=== PATIENT | male | born 1955 | race Caucasian/White ===

== ENCOUNTER 2024-07-28 06:36 | Observation (INO) ==
--- NOTE | 2024-06-29 09:19 | PAT Medication Instructions ---
Medication Instructions Date of Service June 29, 2024 Home Medications donepezil 5 mg tablet (Aricept) 5 mg PO HS Take evening before surgery donepezil 5 mg tablet (Aricept) 5 mg PO HS OTHERWISE NOTHING TO EAT OR DRINK AFTER MIDNIGHT Other Notes If you have any questions please call us at [phone] or [phone] or [phone] or [phone]
--- NOTE | 2024-06-29 09:34 | Anesthesiology Consultation ---
Date of Service June 29, 2024 Assessment & Plan (1) Encounter for pre-operative examination: Chart Review Chart Review: Acceptable Risk for Surgery and Patient seen in Pre Admission Testing Pt currently scheduled as 23 hours observation. If surgeon decides to change patient to Same Day Joint, patient would be acceptable risk for TKA, pending patient is motivated, has good support and surgeon's office completes [facility] Program preop requirements. Per PAT appt on 06/29/24, patient with nasal congestion, rhinitis, productive cough (started 06/27/24). No recent illness/disease exposures (does work in sales though) or recent illness/disease positive tests. Will leave to surgeon's discretion if preop Covid testing needed. Patient educated that symptoms will need resolved by DOS- patient voices understanding. Teaching & Discussion Pre-Anesthesia Teaching/Discussion Notes: Instructed NPO after midnight before surgery,except medications with 15 cc of water. Medication instructions provided according to the PAT guidelines. History Surgery Operation Date: 07/28/24 08:50 Proposed Procedures p Left Total Knee Arthroplasty - Jony Hardy MD Height/Weight Height: 5 ft 11.5 in Weight: 80.2 kg Allergies Allergy/AdvReac Type Severity Reaction Status Date / Time No Known Allergies Allergy Verified 06/29/24 08:55 Medications Home Medications Medication Instructions Recorded Confirmed Last Taken donepezil 5 mg tablet (Aricept) 5 mg PO HS 06/29/24 06/29/24 Unknown Past Medical History Medical History (Updated 06/29/24 @ 09:57 by Nina Ho PA-C) Leg length discrepancy Memory changes Mild per patient Varicose vein of leg right Exercise / Class Metabolic Activity II 4-5 Yardwork/Stairs/Walk up hill (one flight of stairs - no chest pain or SOB ) Past Family History Family History Other No family history of adverse response to anesthesia Past Surgical History Surgical History Hx of arthroscopic knee surgery left knee; meniscus repair Hx of colonoscopy Past Anesthesia History No Hx of Anesthesia Complications and No Family Hx of Anesthesia Complications History of PONV No Hx of PONV and No Hx of Motion Sickness Social History Smoking Status: Never smoker Do You Dip or Chew Tobacco: No Hx Alcohol Use: Yes Alcohol type: beer alcohol intake frequency: a few times a week Hx Substance Use: No substance use type: does not use Review of Systems - Snoring - no witnessed apnea- no hx of sleep study Patient denies chest pain, shortness of breath, dyspnea on exertion, reflux, cough, wheezing, palpitations. No hx of seizures, stroke, [place]. No hx of blood clots or blood transfusions Physical Exam Vital Signs VITALS BP 106/70 P 71 TEMP 98.1 SP02 95% RESP 16 Constitutional no acute distress ENMT Mouth: no TMJ clicking Thyromental Distance: > or= 3.5 Finger Breadths (3.5) Mallampati Class: II Neck + facial hair (mustache- did advise to keep trimmed for DOS ); neck extension not limited Respiratory normal respiratory effort; no respiratory distress Auscultation: lungs clear to auscultation bilaterally; no wheezes Cardiovascular Rate/Rhythm: regular rate and regular rhythm Heart Sounds: no murmur Vessels: no carotid bruit Musculoskeletal Spine: no pain with cervical ROM Extremities: extremities normal to inspection Psychiatric Orientation: alert Lab Results Anesthesia Preop Results Results Anesthesia Widget: WBC 6.19 K/ul (4.8-10.8) 06/29/24 Hgb 14.6 g/dl (14.0-18.0) 06/29/24 Hct 43.1 % (42.0-52.0) 06/29/24 Plt 230 K/uL (130-400) 06/29/24 Na 138 mmol/L (136-145) 06/29/24 K 4.0 mmol/L (3.5-5.1) 06/29/24 Cl 100 mmol/L (98-107) 06/29/24 CO2 33 mmol/L (21-32) H 06/29/24 BUN 18 mg/dl (6-23) 06/29/24 Creat 1.28 mg/dl (0.6-1.4) 06/29/24 Glucose Level 99 mg/dl (70-99(Fasting)) 06/29/24 PT 10.6 Seconds (9.0-12.0) 06/29/24 PTT 29 Seconds (21-31) 06/29/24 INR 1.0 (0.9-1.1) 06/29/24 Blood Type A Positive 06/29/24 Antibody Screen NEGATIVE 06/29/24 Testing Electrocardiogram Date: 06/29/24 Findings: + NSR @ (67bpm) Left axis deviation Septal infarct, age undetermined (Discussed with Dr. Cornejo- no significant cardiac history, good functional status- patient can proceed as scheduled) Chest X-Ray Date: 06/29/24 Findings: + NAD
--- NOTE | 2024-07-23 18:07 | History & Physical Report ---
Date of Service July 23, 2024 Assessment & Plan (1) Left knee DJD: 68-year-old very active gentleman with advanced left knee DJD with probably some degree of ACL insufficiency status post an open meniscectomy many years ago. Failed conservative care. He like to have his knee fixed theraplay so he can stay active. Plan: We are going to take him to the operating room and do a left knee replacement. The risks and benefits of this procedure explained to the patient. He understands. Informed consent was obtained. Hopefully will get a little bit better knee motion. Main reason to the surgery is for pain. Will likely put some antibiotics in the cement due to history of open surgery in the past. He is planning on using tramadol for pain control along with Toradol. He is dre stay in the hospital overnight. Hopefully discharge postop day 1. We use aspirin for DVT prophylaxis. History of Present Illness Chief Complaint: . Persistent left knee pain discomfort and stiffness. Primary Care Provider: Nicholas Kang MD . Patient is a 68-year-old very active gentleman from [place] who presents for surgical treatment of his left knee. He has a long history of knee problems dating back to his college years. He had an open meniscectomy done by Dr. Ochoa when he was in college. He has had persistent pain and discomfort since then. He is just been putting up with it. He has had some intermittent injections which have become less successful over time. He is very active hiking and doing other activities and have more difficulty doing this. His knee feels loose and unstable. The gives out on him. Bit hurts. He would like to have it fixed. Allergies Allergy/AdvReac Type Severity Reaction Status Date / Time No Known Allergies Allergy Verified 06/29/24 08:55 Home Medications Medication Instructions Recorded Confirmed Type donepezil 5 mg tablet (Aricept) 5 mg PO HS 06/29/24 06/29/24 History Past Med/Surg History Problem List Encounter for pre-operative examination Left knee DJD Medical History Leg length discrepancy Memory changes Mild per patient Varicose vein of leg right Surgical History Hx of colonoscopy Hx of arthroscopic knee surgery left knee; meniscus repair Family History Other No family history of adverse response to anesthesia Social History Smoking Status: Never smoker Second Hand Exposure: No; Do You Dip or Chew Tobacco: No; Tobacco Cessation Education Requested by Patient: No Hx Alcohol Use: Yes Alcohol type: beer Hx Substance Use: No Preferred Language: [place] Communication Ability: Effective Portable Sawyer Required: No Beliefs That Will Affect Care: None Current Living Situation: Spouse Other Information That Helps Us Care for You: No Feels Safe at Home: Yes Safety Concerns: Feels Safe At This Time Assistive Devices: Glasses Review of Systems All systems reviewed & are unremarkable except as noted in HPI & below. Physical Exam . Physical examination was a pleasant middle-age male. Looks be in excellent health. Examination of the left knee reveal patient ambulates with a bit of an antalgic gait. Got varus alignment to his knee with a bit of a varus thrust with weightbearing. He is got an oblique incision around the medial side of his knee. Small knee effusion. Got quite a bit of bony hypertrophy. Pretty stiff knee with about a 10 degree flexion contracture and only bends about 100 degrees. No particular pain with hip motion. Little bit of stiffness with hip motion. Negative straight leg raise. He is neurologically intact. Constitutional WD/WN, vitals as above Respiratory normal respiratory effort, lungs clear to auscultation Cardiovascular RRR, no murmur, no edema Gastrointestinal (Abdomen) normal bowel sounds, soft, nontender, no hepatosplenomegaly Results & Data Results & Data Laboratory Results . Diagnostic Findings . X-ray of the left knee reviewed. Shows advanced left knee tricompartment DJD. He is got complete loss of his medial joint space. Got subluxation of the femur on the tibia. Is got subchondral sclerosis. Significant osteophytes throughout and the large posterior loose bodies. PG Care Time/CCT Total # of Minutes Spent Total Time Spent with Patient: Total time spent is greater than 50% in coordination of care (as documented) at patient's floor/unit and/or counseling patient: Coding Level of Care Code None Diagnoses Left knee DJD M17.12
[~2024-07-28 06:36] MED LIST: BUPIVACAINE 0.5 % 5 MG/1 ML PF 10ML VIAL ONE; ROPIVACAINE 0.5% 5 MG/ML 30 ML VIAL ONE
--- NOTE | 2024-07-28 06:42 | History & Physical Bridge Note ---
Date of Service July 28, 2024 History & Physical Bridge Note I have examined the patient, reviewed the History & Physical and in the interval since the performance of the History & Physical I have noted the following changes of clinical significance: no changes noted
[2024-07-28] MEDS: METOCLOPRAMIDE HCL 10 MG TABLET PO SCH (07:05)
[2024-07-28] MEDS: FAMOTIDINE 20 MG TAB PO SCH (07:05)
[2024-07-28] MEDS: CeleBREX 200 MG CAP PO SCH (07:05)
[2024-07-28] MEDS: ACETAMINOPHEN 500 MG TAB PO SCH ×2 (07:05→14:11)
[2024-07-28] MEDS: LR 60ML/HR IV SCH (07:05)
--- OUTSIDE RECORDS SUMMARY | 2024-07-28 07:05 | External Medical Summary | Summary of Care ---
Author Name Unknown Organization [facility] Address [address] [place] [address] Phone [phone] Care Team Providers Care Airfield Services Officer Name Role Phone Zabrina Kirk MD Primary Care Provider [phone] Reason for Referral * Evaluate & Treat - Unlimited Visits (Within 10 days (routine)) - Pending Review Specialty Diagnoses / Procedures Referred By Contac t Referred To Contact Urology Diagnoses Elevated prostate specific antigen (PSA) Zabrina Kirk MD [address] [place] [address] [address] Phone: tel: fax: Referral ID Status Reason Start Date Expiration Date Visits Requested Visits Authorized [id number] Pending Review Specialty Services Required 06/27/[phone] Question Answer Referral Priority Within 10 days (routine) Where should this appointment be scheduled? [facility] What is the patient being referred for? Elevated PSA Reason for Visit * Reason Onset Date Comments Referral 06/27/2024 Urology Abnormal Test Results 06/27/2024 Encounter Details Date Type Department Care Team (Late st Contact Info) Description 06/27/2024 Telephone Family Practice State Dorian Singh [address] [place] [address] [address] [id number] Zabrina Kirk MD [address] [place] [address] [id number] Referral (Urology); Abnormal Test Results Allergies No known active allergiesdocumented as of this encounter (statuses as of 06/27/2024) Medications Donepezil HCl 5 MG Oral Tablet (Aricept) Take 1 Tablet by mouth in the morning. Take with largest meal of the day.. 30 Tablet 5 Active Additional Information Patient taking differently:5 mg OralDINNER, Take with largest meal of the day., Reported on 04/11/2024 documented as of this encounter (statuses as of 06/27/2024) Active Problems Problem Noted Date Diagnosed Date Unspecified dementia, unspec ified severity, without behavioral disturbance, psychotic disturbance, mood disturbance, and anxiety 04/11/2024 Stage 3a chronic kidney disease (CKD) 03/11/2021 Overview: Per CKD protocol Prediabetes 07/14/2017 Overview: Per Prediabetes protocol #1 Osteoarthrosis 04/16/2015 documented as of this encounter (statuses as of 06/27/2024) Resolved Problems Problem Noted Date Diagnosed Date Resolved Date Osteoarthrosis, localized, p rimary, involving lower leg 05/05/2012 04/16/2015 Overview (03/04/2021): ICD-10 update of inactive term ICD-10 update of inactive term documented as of this encounter (statuses as of 06/27/2024) Immunizations Name Administration Dates Next Due COVID-19 mRNA, LNP-s, No Pre serve, 2-Dose Series (Moderna) 09/07/2020,08/10/2020 COVID-19, MRNA-LNP, PF, 50 M CG/0.5 mL, 12 YRS AND ABOVE, IM (MODERNA-Spikevax) 05/21/2023 COVID-19, mRNA, LNP-s, PF, B ooster, 100mcg/0.5mg (Moderna) 04/01/2021 Pneumococcal Conjugate Vaccine, 20-valent (Prevn ar20) 04/09/2023 RSV Vac., Recomb, Adjuvant, PF,0.5 Ml (Arexvy) 0 06/04/2023 Seasonal Influenza Vac., MDV, IM, 0.5 mL (Fluzon e) 04/11/2014 Seasonal Influenza, High Dos e, Trivalent, PF, IM (Fluzone HD) 04/11/2024,03/25/2022 Seasonal Influenza, PF, 6 M & above, IM , (FluLaval or Fluzone) 02/21/2021,02/20/2020 Seasonal Influenza, Quadrivalent Hd (Fluzone Hd) 04/09/2023 TD - Tetanus/Diptheria (ADULT) 01/03/2002 TDAP (age 10 and older)(Boostrix) 04/09/2023,09/2012 Zoster Vaccine Recombinant (Shingrix) 04/15/2018 ,01/05/2018 documented as of this encounter Social History Tobacco Use Types Packs/Day Years Used Date Smoking Tobacco: Never Smokeless Tobacco: Never Alcohol Use Standard Drinks/Week Comments Yes 0 (1 standard drink = 0.6 oz pur e alcohol) occ PHQ-2 Answer Date Recorded PHQ Adult Total Score 3 01/12/2024 Hunger Vital Sign Answer Date Recorded Within the past 12 months, y ou worried that your food would run out before you got the money to buy more. Never true 01/11/20 24 Within the past 12 months, t he food you bought just didn't last and you didn't have money to get more. Never true 01/11/2024 Childcare Answer Date Recorded Do you feel overwhelmed with taking care of a child, family member or friend? No 01/11/2024 Does your family need help f inding childcare? (Household - for ages 0-17 years) Not on file 01/11/2024 Clothing Answer Date Recorded Have you been unable to get clothing when it was really needed? No 01/11/2024 Is your family able to get c lothes or diapers when needed? (Household - for ages 0-17 years) Not on file 01/11/2024 Personal Safety Answer Date Recorded Do you feel unsafe or have concerns for your saf ety? No 01/11/2024 Do you have concerns for you r family's safety? (Household - for ages 0-17 years) Not on file 01/11/2024 Utilities Answer Date Recorded Do you have trouble paying y our heating, water, or electric bill? No 01/11/2024 Is your family able to pay t he heat, water, or electric bill? (Household - for ages 0-17 years) Not on file 01/11/2024 Does your family have access to good internet? (Household - for ages 0-17 years) Not on file 01/11/2024 Employment Status Answer Date Recorded Are you unemployed or without regular income? No 01/11/2024 Does the household have a re gular source of income? (Household - for ages 0-17 years) Not on file 01/11/2024 Social Connections Answer Date Recorded How often do you feel lonely or isolated from th ose around you? Never 01/11/2024 Financial Resource Strain Answer Date R ecorded Do you have any trouble payi ng for your medications, or do you think you might in the future? No 01/11/2024 Does your family have troubl e paying for medicine? (Household - for ages 0-17 years) Not on file 01/11/2024 Transportation Needs Answer Date Record ed Do you have trouble getting a ride to medical visits or work? (Adult - for ages 18 years and over) Not on file 01/11/2024 Does your family have a hard time getting a ride to doctors visits? (Household - for ages 0-17 years) Not on file 01/11/2024 Has lack of transportation k ept you from medical appointments, meetings, work, or from getting things needed for daily living? Check all that apply. No 01/11/2024 Do you (or your family) have trouble finding or paying for a ride (transportation)? (Household - for ages 0-17 years) Not on file 01/11/2024 Housing Stability Answer Date Recorded Do you currently live in a s helter or have no steady place to sleep at night? No 01/11/2024 Do you think you are at risk of becoming homeless? (Adult - for ages 18 years and over) Not on file 01/11/2024 Does your family worry about paying for your home or becoming homeless? (Household - for ages 0-17 years) Not on file 0 01/11/2024 Are you homeless or worried that you might be in the future? No 01/11/2024 Are you (or your family) saturnino eless or worried that you might be in the future? (Household - for ages 0-17 years) Not on file Food Insecurity Answer Date Recorded Do you need food for this week? No 01/11/2024 Are you able to get enough f ood for your family? (Household - for ages 0-17 years) Not on file 01/11/2024 Does your family need food t his week? (Household - for ages 0-17 years) Not on file 01/11/2024 Do you always have enough fo od for your family? 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 Please let him know his repeat PSA was again slightly elevated and I recommend he seen urology to discuss next steps. Urology referral ordered. documented in this encounter Plan of Treatment Upcoming Encounters Date Type Department Care Team (Late st Contact Info) Description 09/21/2024 11:00 AM EDT Office Visit Urology Adrian Garcia Cyndi Giraldo Mejia [address] [address] Holly Short PA-C [address] [address] Scheduled Referrals Name Type Priority Associated Diagnoses Orde r Schedule ADULT/PEDS UROLOGY REFERRAL OP Referral Within 10 days (routine) Elevated prostate specific antigen (PSA) Ordered: 06/27/2024 Health Maintenance Due Date Last Done Comments Cologuard 2001 Fecal Occult Blood Test 2001 Sigmoidoscopy 2001 COVID-19 Vaccine ( season) 2024 05/21/2023, 04/01/2021, 09/07/2020, Additional history exists GFR 10/09/2024 04/11/2024, 0 01/2023, 04/03/2022, Additional history exists Depression Screening 01/11/2025 01/12/2024, 01/12/20 24 Albumin/Creatinine Ratio 04/11/2025 04/11/2024, 0 07/2021 HbA1c 04/11/2025 04/11/2024, 110 01/2023, 04/03/2022, Additional history exists Colonoscopy 02/22/2027 02/23/2024, 01/31, 02/27/2022, Additional history exists Colorectal Cancer Screening 02/22/2027 Lipid Panel 04/09/2028 04/09/2023, 110 07/2021, 06/08/2020, Additional history exists DTap/Tdap Vaccines (3 - Td or Tdap) 04/09/2033 04/09/2023, 04/05/2013, 01/03/2002 Zoster Vaccines Completed 04/15/2018, 01/05/2018 Pneumococcal Vaccine: 50+ Years Completed 04/09/2023 RETIRED - COLONOSCOPY-ANNUAL AGES 18-100 Discontinued 02/23/2024, 02/23/2024, 02/27/2022, Additional history exists Influenza Vaccine (FLU shot) Completed 04/11/2024, 04/09/2023, 03/25/2022, Additional history exists HPV (Gardasil) Vaccine Aged Out No lo nger eligible based on patient's age to complete this topic Hepatitis B Vaccine Aged Out No longe r eligible based on patient's age to complete this topic MENINGOCOCCAL (MENACTRA/MENVEO) Aged Out No longer eligible based on patient's age to complete this topic documented as of this encounter Medical Devices Not on filedocumented as of this encounter Visit Diagnoses Diagnosis Elevated prostate specific antigen (PSA)- Primary documented in this encounter Care Teams Airfield Services Officer Relationship Specialty Start Date End Date Zabrina Kirk MD [address] [place] [address] PCP - General Family Medicine 06/07/24 documented as of this encounter
--- OUTSIDE RECORDS SUMMARY | 2024-07-28 07:05 | External Medical Summary | Summary of Care ---
Author Name Unknown Organization [facility] Address [address] [place] [address] Phone [phone] Care Team Providers Care Can Worker Name Role Phone Zabrina Kirk MD Primary Care Provider [phone] Reason for Referral * Evaluate & Treat - Unlimited Visits (Within 10 days (routine)) - Pending Review Specialty Diagnoses / Procedures Referred By Contac t Referred To Contact Urology Diagnoses Elevated prostate specific antigen (PSA) Zabrina Kirk MD [address] [place] [address] [address] Phone: tel: fax: Referral ID Status Reason Start Date Expiration Date Visits Requested Visits Authorized [id number] Pending Review Specialty Services Required 06/27/2024 999 [...] State Dorian Singh [address] [place] [address] [address] Zabrina Kirk MD [address] [place] [place] [address] [address] Referral (Urology); Abnormal Test Results Allergies No [...] Seasonal Influenza, Quadrivalent Hd (Fluzone Hd) 04/09/2023 TDAP (age 10 and older)(Boostrix) 04/09/2023,09/2012 Zoster [...] 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 Please let him know his repeat PSA was again slightly elevated and I recommend he seen urology to discuss next steps. Urology referral ordered. documented in this encounter Plan of Treatment Scheduled Referrals Name Type Priority Associated Diagnoses Orde r Schedule ADULT/PEDS UROLOGY REFERRAL OP Referral Within 10 days (routine) Elevated prostate specific antigen (PSA) Ordered: 06/27/2024 Health Maintenance Due Date Last Done Comments Cologuard 2001 Fecal Occult Blood Test 2001 Sigmoidoscopy 2001 COVID-19 Vaccine ( season) 2024 05/21/2023, 04/01/2021, 09/07/2020, Additional history exists GFR 10/09/2024 04/11/2024, 01/2023, 04/03/2022, Additional history exists Depression Screening 01/11/2025 01/12/2024, 01/12/20 24 Albumin/Creatinine Ratio 04/11/2025 04/11/2024, 07/2021 HbA1c 04/11/2025 04/11/2024, 01/2023, 04/03/2022, Additional history exists Colonoscopy 02/22/2027 02/23/2024, 01/31, 02/27/2022, Additional history exists Colorectal Cancer Screening 02/22/2027 Lipid Panel 04/09/2028 04/09/2023, 07/2021, 06/08/2020, Additional history exists DTap/Tdap Vaccines [...] Primary documented in this encounter Care Teams Can Worker Relationship Specialty Start Date End Date Zabrina Kirk MD [address] [place] [address] PCP - General Family Medicine 06/07/24 documented as of this encounter
--- OUTSIDE RECORDS SUMMARY | 2024-07-28 07:05 | External Medical Summary | Summary of Care ---
Author Name Unknown Organization [facility] Address [address] [place] [address] Phone [phone] Care Team Providers Care World Geography Teacher Name Role Phone Zabrina Kirk MD Primary Care Provider [phone] Reason for Visit * Reason Comments eRx-Medication Refill Encounter Details Date Type Department Care Team (Late st Contact Info) Description 07/18/2024 Refill Family Practice [facility] [address] [place] [address] Nicholas Kang III, MD [address] [place] [address] Allergies No known active allergiesdocumented as of this encounter (statuses as of 07/19/2024) Medications Donepezil HCl 5 MG Oral Tablet (Aricept) Take 1 Tablet by mouth daily with dinner. 90 Tablet 1 5 Active Donepezil HCl 5 MG Oral Tablet (Aricept) Take 1 Tablet by mouth in the morning. Take with largest meal of the day.. 30 Tablet 5 4 07/19/19 25 Discontinued documented as of this encounter (statuses as of 07/19/2024) Active Problems Problem Noted Date Diagnosed Date Unspecified dementia, unspec ified severity, without behavioral disturbance, psychotic disturbance, mood disturbance, and anxiety 04/11/2024 Stage 3a chronic kidney disease (CKD) 03/11/2021 Overview: Per CKD protocol Prediabetes 07/14/2017 Overview: Per Prediabetes protocol #1 Osteoarthrosis 04/16/2015 documented as of this encounter (statuses as of 07/19/2024) Resolved Problems Problem Noted Date Diagnosed Date Resolved Date Osteoarthrosis, localized, p rimary, involving lower leg 05/05/2012 04/16/2015 Overview (03/04/2021): ICD-10 update of inactive term ICD-10 update of inactive term documented as of this encounter (statuses as of 07/19/2024) Immunizations Name Administration Dates Next Due COVID-19 [...] ages 0-17 years) Not on file 01/11/2024 Food Insecurity Answer Date Recorded Within the past 12 months, y ou worried that your food would run out before you got the money to buy more. Never true 01/11/20 24 Within the past 12 months, t he food you bought just didn't last and you didn't have money to get more. Never true 01/11/2024 Do you need food for this week? 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 Authorizing Provider: ZABRINA KIRK * Telephone Encounter - Delores Lopez LPN - 07/19/2024 9:31 AM ESTPending Prescriptions: Disp Refills Donepezil HCl 5 MG Oral Tablet [Pharmacy M*30 Tab*0 Sig: Take 1 Tablet by mouth in the morning. Take with largest meal of the day.. * Telephone Encounter - Delores Lopez LPN - 07/19/2024 9:30 AM EST Did you pend patient's preferred pharmacy and medication before forwarding?yes Pharmacy: [facility] [id number] Pending Prescriptions: Disp Refills Donepezil HCl 5 MG Oral Tablet (Aricept) *30 Tab*0 Sig: Take 1 Tablet by mouth in the morning. Take with largest meal of the day.. Last Visit: 04/11/2024 (in office), Visit date not found (telemedicine) Next Visit: Visit date not found If no future appointments scheduled, and last appointment is greater than a year ago, please schedule patient for a follow-up appointment Last date the medication was ordered: 01/12/24 Is this request for a controlled substance?No Urine Drug Screen:No results found for this or any previous visit. Patient Phone Numbers Labs: Lab Results Component Value Date/Time CREAT 1.0 04/11/2024 11:13 AM CREAT 1.5 (H) 06/08/2020 09:10 AM POTASSIUM 4.5 04/11/2024 11:13 AM POTASSIUM 4.5 06/08/2020 09:10 AM TSH 1.92 01/12/2024 09:32 AM TSH 2.45 04/11/2014 09:08 AM LDL 100 04/09/2023 11:32 AM LDL 125 06/08/2020 09:10 AM LDL NOT APPLICABLE 06/08/2020 09:10 AM ALT 25 04/09/2023 11:32 AM ALT 13 06/08/2020 09:10 AM HGBA1C 5.8 (H) 04/11/2024 11:13 AM HGBA1C 6.1 (H) 06/08/2020 09:10 AM * Telephone Encounter - PoloshellyElaina - 07/18/2024 7:06 PM ESTPending Prescriptions: Disp Refills Donepezil HCl 5 MG Oral Tablet [Pharmacy M*30 Tab*0 Sig: Take 1Tablet by mouth in the morning. Take with largest meal of the day.. documented in this encounter Plan of Treatment Upcoming Encounters Date Type Department Care Team (Late st Contact Info) Description 09/21/2024 11:00 AM EDT Office Visit Urology Adrian Garcia [address] [place] [address] Holly Short PA-C [address] [place] [id number] Health Maintenance Due Date Last Done Comments Cologuard 2001 Fecal Occult Blood Test 2001 Sigmoidoscopy 2001 COVID-19 Vaccine ( season) 2024 05/21/2023, 04/01/2021, 09/07/2020, Additional history exists GFR 10/09/2024 04/11/2024, 01/2023, 04/03/2022, Additional history exists Depression Screening 01/11/2025 01/12/2024, 01/12/20 24 Albumin/Creatinine Ratio 04/11/2025 04/11/2024, 0 07/2021 HbA1c 04/11/2025 04/11/2024, 0 01/2023, 04/03/2022, Additional history exists Colonoscopy 02/22/2027 02/23/2024, 01/31, 02/27/2022, Additional history exists Colorectal Cancer Screening 02/22/2027 Lipid Panel 04/09/2028 04/09/2023, 0 07/2021, 06/08/2020, Additional history exists DTap/Tdap Vaccines [...] on patient's age to complete this topic Meningitis B Vaccine (Bexsero/Trumemba) Aged Out No longer eligible based on patient's age to complete this topic documented as of this encounter Medical Devices Not on filedocumented as of this encounter Care Teams World Geography Teacher Relationship Specialty Start Date End Date Zabrina Kirk MD [address] [facility] [place] [address] PCP - General Family Medicine 06/07/24 documented as of this encounter
[2024-07-28] MEDS: dexAMETHasone**PF** 10 MG/ML VIAL IV SCH (07:13)
[2024-07-28] MEDS: LR 500ML BOLUS, THEN 15ML/HR IV SCH (07:14)
[2024-07-28] MEDS ORDERED: MIDAZOLAM HCL 1 MG/ML 2ML VIAL ONE (07:25)
[2024-07-28] MEDS ORDERED: PROPOFOL IV EMULSION 10 MG/ML 20 ML VIAL IV ONE (07:26)
[2024-07-28] MEDS ORDERED: ONDANSETRON INJ 2 MG/ML 2 ML VIAL ONE (07:26)
[2024-07-28] MEDS ORDERED: fentaNYL citrate PF 100 MCG/2 ML VIAL IV PRN (08:04)
[2024-07-28] MEDS ORDERED: ONDANSETRON INJ 2 MG/ML 2 ML VIAL IV PRN ×2 (08:04→13:24)
[2024-07-28] MEDS ORDERED: ePHEDrine sulfate 50 MG/ML AMP IV PRN (08:04)
[2024-07-28] MEDS ORDERED: ATROPINE SULFATE 0.1 MG/ML 10ML SYR IV PRN (08:04)
[2024-07-28] MEDS: ceFAZolin 2000MG 2,000 MG/15 ML SYR IV SCH ×2 (09:17→16:25)
[2024-07-28] MEDS ORDERED: KETAMINE HCL 10MG/ML SYR ONE (09:33)
[2024-07-28] MEDS ORDERED: KETOROLAC 30 MG/ML VIAL ONE (09:41)
[2024-07-28] MEDS ORDERED: ePHEDrine sulfate 50 MG/ML AMP ONE (09:56)
[2024-07-28] MEDS: ROPIV 0.5% 246mg, Ketorolac 30mg, EPINEPHrine 0.5mg in NSS INFIL SCH (09:59)
[2024-07-28] MEDS: ORTHO JOINT ANESTHETIC ONE (10:00)
[2024-07-28] MEDS: TRANEXAMIC ACID 1,000 MG **IV Intra-op IV SCH (10:08)
--- NOTE | 2024-07-28 11:09 | Operative Report ---
PG Post Operative Report Pre & Post Diagnosis Operation Date: 07/28/24 08:50 Pre-Op Diagnosis: Left Knee Osteoarthritis Post-Op Diagnosis: Left Knee Osteoarthritis I identified the patient and participated in the time-out.: Yes Procedure Operation Date: 07/28/24 08:50 Actual Procedures p Left Total Knee Arthroplasty, Cemented(Left) - Jony Hardy MD Surgeon Jony Hardy MD Medical Observer Joon Carolina PA-C Estimated Blood Loss 50 Findings Consistent with Post-Op Diagnosis Operative findings of advanced left knee DJD. Had a very stiff knee with about a 10 degree flexion contracture and only 90 degrees of flexion. He has extensive bony osteophyte formation throughout all 3 compartments with a fixed varus deformity to his knee. Large loose bodies posteriorly. Chronic ACL deficiency. Specimens Left knee sent for pathology. Anesthesia Type Spinal MAC Complications none Disposition Accompanied Patient To Recovery: No Indications Patient is 68-year-old very active gentleman said a long history of a left knee problems. He had an open meniscectomy back in high school. Since then he has developed progressive pain discomfort deformity and stiffness in his knee. Failed all conservative measures. He elected proceed with total knee arthroplasty. Description of Procedure Operative implants consist of: 1 Biomet Vanguard size 72.5 left posterior Byce femoral component. 2. Biomet size 79 tibial tray. 3. 14 mm posterior stabilized polyethylene insert. 4. 34 x 8-1/2 all poly patella. The patient was taken the operating, identified, placed on the operating table in the supine position. All conductors were appropriately padded. IV antibiotics fibra anesthesia team. A spinal anesthetic and adductor canal block had been provided in the holding area. Left thigh turn was then placed. The left lower extremity was then prepped and draped in usual sterile fashion. The left leg was elevated and exsanguinated with use of an Esmarch and a turn was placed at 300 mmHg. An anterior approach left knee was then performed to longitudinal incision centered over the patella. Sharp dissection was got through subcutaneous tissue down the extensor mechanism. A medial parapatellar arthrotomy incision was made. Some subperiosteal dissection was carried out medially. The fat pad was resected from his patella tendon. Lateral patellofemoral ligament was released. Patella subluxate laterally and the knee was flexed. The osteophytes taken off distal femur. The ACL was absent. The PCL was released and the tibia subluxated anteriorly. He had quite a bit of scarring it took us a while to release this enough to subluxate his tibia anteriorly. The external treatment LYMErix then placed in the anterior face the tibia and adjusted 14 mm medially. The proximal tibial cut was made essentially flush with the most efficient aspect of the posterior medial tibial plateau. Some large osteophytes taken off medially. The tibia sized to a size 79. Attention then drawn to the femur. The distal femur was entered with a sharp drill. Intramedullary canal was suction. A left 6 degree valgus cutting guide was placed. Distal femoral cut was made to take an additional 3 mm of bone off distal femur. The femur was then sized to a size 72.5. The AP cutting block was pinned parallel to the epicondylar axis which was 5 degrees of external rotation. The anterior cut, anterior chamfer, posterior cut, posterior chamfer cuts were made. The box cutting guide was placed and just slight lateral box cut was made. The knee was flexed. The remnants of the medial and lateral menisci were excised. The osteophytes taken off the posterior aspect the femur. There was a large loose body which was also removed posteriorly. The femoral component was then placed. The tibial tray was pinned Cristina external rotation and the drill and stem punch used. Defect in proximal tibia for the tibial tray. The knee was then trialed and the 14 mm insert fit most appropriately. Attention drawn the patella. The patella was cleaned of all soft tissues. The patella thickness measured 24 mm in thickness was cut down to 14. It was sized to a size 34 patella. The lug holes were drilled for 34 patella. The lateral osteophyte was removed. Patella button was placed. Knee was taken through range of motion patella tracked nicely with no thumbs test. Attention then drawn toward placement permanent components. All trial components were removed. Bone plug was placed into this femur limit blood loss. A double batch Palacos G cement was mixed. [email or web address] Vanguard size 72.5 left posterior stabilized femoral component, a size 79 tibial tray, a 14 mm posterior stabilized polyethylene insert, and a 34 x 8 and half all poly patella then cemented in place. The knee was brought out into full extension till cement hardened. Final cement check was then performed. The pericapsular tissues were injected with total of 100 cc of Ortho mix. Patient did receive 1 g tranexamic acid. The tourniquet was then let down for final turn time 64 minutes. Hemostasis surgeries electrocautery. Extensor Meclomen closed with combination 1 PDS suture #1 Vicryl suture in a [id number] fashion. Extensor Meclomen checked found to be intact through subcutaneous tissue then closed with 2 Dexon suture in a buried interrupted fashion skin was closed skin jasper. Leg was then cleaned and dried and sterile dressed with Xeroform, 4 fours, sterile cast padding, Nikita bandage were applied. Patient then transferred to the recovery room in stable condition. The patient tolerated the procedure well and there were no complications. Joon Carolina, my physician transport assistant, was present for the entire procedure. His assistance was essential and required for appropriate patient positioning, prepping and draping, surgical exposure, performing the technical details of the operation, placement the implants, closure of the wound, and placement of the sterile bandage. I attest to the content of the Intraoperative Record and any orders documented therein. Any exceptions are noted below.
--- NOTE | 2024-07-28 11:32 | XRay Report ---
XR knee LT 1 or 2V routine CLINICAL HISTORY: Surgical Post Op COMPARISON: None FINDINGS: Left knee prosthesis shows no hardware complication. There is expected soft tissue gas. Sk in jasper are present. IMPRESSION: Unremarkable postoperative exam. ACT 112: Negative or not required by law. Electronically signed by: Eric Oshea M.D. 07/28/2024 11:30 AM
[2024-07-28] MEDS ORDERED: MAGNESIUM HYDROXIDE SUSP 30 ML UDC PO PRN (13:24)
[2024-07-28] MEDS ORDERED: ALUMINUM/MAGNESIUM SUSP 30 ML UDC PO PRN (13:24)
[2024-07-28] MEDS ORDERED: HYDROmorphone INJ 0.5 MG/0.5 ML SYR IV PRN (13:24)
[2024-07-28] MEDS ORDERED: NALOXONE HCL 0.4 MG/1 ML VIAL/CARP IV PRN (13:24)
[2024-07-28] MEDS ORDERED: oxyCODONE HCL IR 5 MG TAB (IMMEDIATE RELEASE) PO PRN (13:24)
[2024-07-28] MEDS ORDERED: METOCLOPRAMIDE HCL INJ 5 MG/ML 2 ML VIAL IV PRN (13:24)
[2024-07-28] MEDS ORDERED: bisacodyL 10 MG SUPP PR PRN (13:24)
[2024-07-28] MEDS: KETOROLAC TROMETHAMINE 15 MG/ML VIAL IV SCH (14:11)
--- NOTE | 2024-07-28 14:13 | Anesthesiology Progress Note ---
Date of Service July 28, 2024 Anesthesia Post Procedure Vital Signs Vital Signs: Temp Pulse Pulse Resp BP BP Pulse Ox 07/28/24 14:12 97.7 F 65 16 109/55 L 96 07/28/24 13:25 97.7 F 64 15 106/64 94 07/28/24 13:00 91 H 16 101/58 L 95 07/28/24 12:50 67 16 96/56 L 95 07/28/24 12:40 64 17 93/59 L 95 07/28/24 12:30 65 16 91/56 L 97 07/28/24 12:20 64 15 98/57 L 94 07/28/24 12:10 97.5 F L 68 17 97/58 L 94 07/28/24 12:00 67 16 103/57 L 95 07/28/24 11:50 62 16 93/52 L 96 07/28/24 11:40 64 16 90/55 L 96 07/28/24 11:30 67 18 99/59 L 96 07/28/24 11:20 71 16 128/64 94 07/28/24 11:10 73 16 98/57 L 94 07/28/24 11:08 96.8 F L 77 16 98/58 L 97 07/28/24 06:53 97.9 F 63 20 130/82 97 O2 Del Method O2 Flow Rate 07/28/24 14:12 Room Air 07/28/24 13:25 Room Air 07/28/24 13:00 Room Air 07/28/24 12:50 Room Air 07/28/24 12:40 Room Air 07/28/24 12:30 Room Air 07/28/24 12:20 Room Air 07/28/24 12:10 Room Air 07/28/24 12:00 Room Air 07/28/24 11:50 Room Air 07/28/24 11:40 Room Air 07/28/24 11:30 Room Air 07/28/24 11:20 Room Air 07/28/24 11:10 Room Air 07/28/24 11:08 Oxymask 6 07/28/24 06:53 Room Air Pain Intensity Left Knee: Pain Intensity: 1 Transfer of Care Handoff Completed per policy Notes Mental Status: alert / awake / arousable and participated in evaluation Patient Amnestic to Procedure: Yes Nausea / Vomiting: adequately controlled Pain: adequately controlled Airway Patency, RR, SpO2: stable & adequate BP & HR: stable & adequate Hydration State: stable & adequate Neuraxial Anesthesia: was administered and sensory block is resolving Anesthetic Complications: no major complications apparent and Pt Satisfied with anesthetic care
[2024-07-28] MEDS: ASCORBIC ACID 500 MG TAB PO SCH (16:25)
[2024-07-28] MEDS: TRANEXAMIC ACID / 0.7% NACL 1,000 MG/100 ML BAG IV SCH (17:02)
[2024-07-28] MEDS: DONEPEZIL HCL 5 MG TAB PO SCH (20:39)
[2024-07-28] MEDS: SENNA 8.6 MG TAB PO SCH ×2 (20:40)
[2024-07-28] MEDS: DOCUSATE SODIUM 100 MG CAP PO SCH (20:41)
[2024-07-28] MEDS: ASPIRIN 81 MG ECTAB PO SCH (20:42)
[2024-07-29 06:53] LABS: Hematocrit (blood only) 35.9 % (42.0-52.0); Mean Corpuscular Hgb Conc 33.4 g/dL (32.0-36.0); Mean Corpuscular Volume 80.7 fL (80.0-100.0); Mean Platelet Volume 11.6 fL (9.4-12.4); Platelet Count 200 K/uL (130-400); RDW Coefficient of Variation 14.9 % (11.5-14.5); RDW Standard Deviation 43.8 fL (36.4-46.3); Red Blood Count 4.45 M/uL (4.70-6.10); White Blood Count 11.82 K/ul (4.8-10.8)
--- NOTE | 2024-07-29 07:23 | Orthopedic Progress Note ---
Date of Service July 29, 2024 Assessment & Plan (1) Status post left knee replacement: Plan: 68-year-old gentleman postop day 1 from left knee replacement. He is doing quite well. Pains controlled. He is neurologically intact. Plan: 1. DVT prophylaxis including thigh-high teds, SCDs, aspirin twice a day. 2. PT/OT. Weight-bear as tolerated. Left total knee protocol. 3. Pain control. Doing well with current pain regimen. 4. Disposition. Plan is to discharge to home with some home health after therapy today. Admission and Anticipated Discharge Date Admission Date: July 28, 2024 Subjective 68-year-old gentleman now postop day 1 from a left knee replacement. He is doing quite well this morning. Pains been controlled. Had a reasonable night. No chest pain or shortness of breath. Not feeling dizzy or lightheaded. Physical Exam Physical Exam: Physical examination is a pleasant middle-age male. He is lying in bed looks pretty comfortable this morning. Examination of the left leg reveals the leg to be well aligned. Dressings clean dry and intact. He can dorsiflex and plantarflex his foot appropriately. He is neurologically intact. Respiratory: normal respiratory effort, lungs clear to auscultation Cardiovascular: RRR, no murmur, no edema Gastrointestinal (Abdomen): normal bowel sounds, soft, nontender, no hepatosplenomegaly Results & Data Vital Signs (Past 12 Hours) Vital Signs Temp Pulse Resp BP Pulse Ox O2 Del Method 07/28/24 20:20 36.6 C 64 16 113/68 96 Room Air Laboratory Results Hemoglobin is 12.0. Hematocrit is 35.9. Electrolytes are pending.
[2024-07-29 07:25] LABS: BUN Creatinine Ratio 26.8 (10-20); Creatinine Clr Calc Pharmacy 69.2 ml/min; Potassium 3.8 mmol/L (3.5-5.1)
[2024-07-29] MEDS: MULTIVITAMIN TAB PO SCH (07:51)
[2024-07-29] MEDS: TAMSULOSIN HCL 0.4 MG CAP PO SCH (07:51)
[2024-07-29] MEDS: dexAMETHasone 10 MG in SYRINGE 0 ML IV SCH (07:52)
[2024-07-29 12:01] VITALS: BP 110/64; PULSE 70; RESP 15; TEMP 98.1; O2SAT 97
--- NOTE | 2024-08-02 09:03 | Discharge Summary ---
Date of Service August 02, 2024 Admission HPI (Per Admitting) . Patient is a 68-year-old very active gentleman from [place] who presents for surgical treatment of his left knee. He has a long history of knee problems dating back to his college years. He had an open meniscectomy done by Dr. Ochoa when he was in college. He has had persistent pain and discomfort since then. He is just been putting up with it. He has had some intermittent injections which have become less successful over time. He is very active hiking and doing other activities and have more difficulty doing this. His knee feels loose and unstable. The gives out on him. Bit hurts. He would like to have it fixed. Admission Exam (Per Admitting) . Physical examination was a pleasant middle-age male. Looks be in excellent health. Examination of the left knee reveal patient ambulates with a bit of an antalgic gait. Got varus alignment to his knee with a bit of a varus thrust with weightbearing. He is got an oblique incision around the medial side of his knee. Small knee effusion. Got quite a bit of bony hypertrophy. Pretty stiff knee with about a 10 degree flexion contracture and only bends about 100 degrees. No particular pain with hip motion. Little bit of stiffness with hip motion. Negative straight leg raise. He is neurologically intact. Principal Diagnosis Same as "Discharge Diagnosis" noted below under Discharge Instructions. Discharge Data Procedures Performed Operation Date: 07/28/24 08:50 Actual Procedures p Left Total Knee Arthroplasty, Cemented(Left) - Jony Hardy MD Ordered Studies 07/28/24 05:00 US - OR guided needle placemen Routine Hospital Course (1) Status post left knee replacement: This is a 68 year old patient admitted on 07/28/24 and underwent total knee arthroplasty. He tolerated the procedure well and there were no complications. Transferred to the PACU post op and later to the orthopedic floor for further care. He was given ancef for antibiotic prophylaxis. He was also given LEVI stockings, SCDs, and aspirin for DVT prophylaxis. Hemoglobin, hematocrit, and vital signs were monitored during his hospital stay and remained stable. Did not require any blood transfusions. There were no complications during his hospital stay. By post op day #1 the patient was tolerating a regular diet, pain was reasonably controlled with oral pain medicine, and he was participating in physical therapy. On post op day #1 the patient was discharged home and set up with home health care. He was given printed discharge instructions including prescriptions for extra strength tylenol, aspirin, cefadroxil, zofran, senokot, flomax, and oxycodone. Continue physical therapy, weight bearing as tolerated. Continue LEVI stockings. Follow up approximately 2 weeks post op or sooner if there are problems or concerns. PG Care Time/CCT Total # of Minutes Spent Total Time Spent with Patient: Total time spent is greater than 50% in coordination of care (as documented) at patient's floor/unit and/or counseling patient: Discharge Plan Discharge Items Patient Disposition: Home - Home Health Services Reason For Visit: Left Knee Osteoarthritis Discharge Diagnosis: Left Knee Replacement Activity: Per Instructions section Weightbearing: Full weightbearing Non-emergency contact: Surgeon Call non-emergency contact if: you have any medication questions Follow-up/Referrals: Nicholas Kang MD [Primary Care Provider] - Diet: Regular Addtl Attending Provider Instructions: ACTIVITY RECOMMENDATIONS: Diet: * You may resume previous diet. Physical Therapy: * You will go to physical therapy three times each week for four to six weeks after your surgery in order to regain your knee range of motion and to retrain your knee to work properly. * It is just as important to make sure you are getting your knee perfectly straight as it is to regain your knee bend. * Taking a pain pill an hour before therapy can help you have a more productive and comfortable therapy session. Home Exercise: * You were shown a series of exercises (heel props, heel slides, etc.) in the hospital. Do these exercises three to four times each day including the exercises you were shown in physical therapy. Walking: * Get up and walk several times each day. For the first four weeks, try not to stand or walk for more than one hour at a time. If you do stand or walk for more than one hour, you will not hurt anything, but your knee and leg will likely swell. * As you feel comfortable, you may change from the walker or crutches to a cane and then to independent walking. MEDICATIONS: New Medicine: * You will likely be taking one or more of these medications: 1. Oxycodone - A quick and shorter-acting pain medication. Take one to two tablets every six hours to lessen your pain. 2. Aspirin - Thins your blood to lessen the chance of forming a blood clot. * The most common side effects of pain medicine and iron are nausea and constipation. If nausea or constipation is too much of a problem or if you have any questions about your new medicines or doses, call [facility] at . We will try to help you manage these issues. "VERY IMPORTANT TO READ AND REVIEW" Pain: * The immediate post-operative period after knee replacement surgery is often quite painful. * You are given a prescription for pain medicine. You should take it, as directed, when you need it, especially before physical therapy and before going to bed. Pain that interferes with sleep is very common and can last several months. * You will likely need pain medicine for the first four to six weeks. It will not stop all of the pain. The pain will lessen and as you feel better, you may change to milder pain medicine such as Tylenol. * The most common side effects of pain medicine are nausea and constipation, so don't take more than you need. SPECIAL CARE INSTRUCTIONS: TEDs/Elastic Stockings: * The white elastic stockings help limit swelling and prevent blood clots from forming in your legs. The more you wear them, the more they work. * Wear them for six weeks after knee replacement surgery and four weeks after partial knee replacement. Incision Site Care: * Remove dressing postoperative day 2 and then shower. Keep direct shower pressure off the incision site. * After showering, cover jasper with dry gauze and change daily or more frequently if the dressing is getting saturated with drainage. * Use the LEVI stockings to hold dressing in place. DO NOT apply tape on the skin. * May completely stop using bandage if wound is dry and no drainage * Jasper are removed between 2 and 3 weeks post-op. If your follow-up appointment is made before 2 weeks, please have your appointment re- scheduled. It is too early to remove the jasper. Prevention of Infection: * Take antibiotics one hour before any dental cleaning, dental work, urological procedure, gastrointestinal procedure or any invasive surgery in order to prevent your new joint from getting infected. * You may get the antibiotics from the doctor performing the procedure or you may call our office at [phone] before and we will call in a prescription to the pharmacy of your choice. Things to Watch For: * Drainage from the incision site that occurs more than one week after your surgery. * Severely increased knee/leg pain or swelling. * Increased redness at the incision site. * Fever above 102 degrees Fahrenheit. * Unusual chest pain or shortness of breath. * Unusual pain or burning with urination. Call [facility] at [phone] with any of the above problems or if you have any questions about your medicines or recovery. FOLLOW UP VISIT: Make an appointment to see your doctor for approximately two weeks after surgery for a progress check and staple removal by calling the office at [phone]. Pending Studies at Discharge: No Stand-Alone Forms: My [facility], Pain - Opioid Pain Management, Smoking Cessation Medications and DC Order Prescriptions: Continued oxycodone 5 mg tablet 5 - 10 mg PO Q6 PRN (Reason: pain) Qty: 40 0RF Rx Instructions: Take as needed for pain ondansetron 4 mg tablet,disintegrating 4 mg PO Q8 PRN (Reason: nausea) Qty: 20 1RF Rx Instructions: Take as needed for nausea sennosides [Senokot] 8.6 mg tablet 8.6 mg PO BID 14 Days Qty: 28 0RF Rx Instructions: Take two times a day to prevent/treat constipation aspirin [Michele Low Dose Aspirin] 81 mg tablet,delayed release (DR/EC) 81 mg PO BID 45 Days Qty: 90 0RF Rx Instructions: Take to prevent blood clots. acetaminophen [Tylenol Extra Strength] 500 mg tablet 1,000 mg PO TID 30 Days Qty: 180 0RF Rx Instructions: Take 3 times per day to lessen pain. tamsulosin [Flomax] 0.4 mg capsule 0.4 mg PO DAILY Qty: 7 0RF Rx Instructions: Begin night BEFORE surgery to prevent urinary retention donepezil [Aricept] 5 mg Tablet 5 mg PO HS Admission Data Admit Date/Time: 07/28/24 13:22 Attending Provider: Jony Hardy Admit Provider: Jony Hardy Primary Care Provider: Nicholas Kang Other Interventions: Discharge Summary Assessment (RN) Last Done: 07/29/24 10:06
== END 2024-07-29 12:51 | disposition home health service (06) ==
LOC: ASU 06:36 → 3E 06:36
DX: Z88.8 Allergy status to other drugs, medicaments and biological substances; M17.12 Unilateral primary osteoarthritis, left knee; Z88.5 Allergy status to narcotic agent; G31.84 Mild cognitive impairment of uncertain or unknown etiology; M23.52 Chronic instability of knee, left knee; Z79.899 Other long term (current) drug therapy; Z79.82 Long term (current) use of aspirin; M23.42 Loose body in knee, left knee